=== PATIENT | female | born 1940 | race Caucasian/White ===

== ENCOUNTER 2023-07-27 08:22 | Outpatient (CLI) | payer MEDICARE | END 2023-07-27 22:14 | disposition critical access hospital (66) | LOC: EMS 08:22 | DX: R41.82 Altered mental status, unspecified (principal); W06.XXXA Fall from bed, initial encounter; Y92.003 Bedroom of unspecified non-institutional (private) residence as the place of occurrence of the external cause | CPT/HCPCS: A0425; A0429 ==

== ENCOUNTER 2023-07-27 08:44 | Inpatient (IN) | payer MEDICARE, MEDICAID ==
--- NOTE | 2023-07-27 09:22 | ED Physician Documentation ---
History of Present Illness - Stated complaint Stated Complaint: FOUND DOWN - Chief complaint Chief Complaint: General - History obtained from History obtained from: EMS - History of Present Illness Timing: Today - Additonal information Additional information: Lidna Ellis is an 83-year-old female who arrives to the emergency department via EMS with a history that she has had declining health for the past 2 months and increasing confusion and this morning she slid out of bed onto the ground. She did not have significant injury associated with this. She is not interactive. She lives with a daughter. The daughter is not in the emergency department at the time the patient arrives. We have no further history at the time the patient arrives to the emergency department. Review of Systems Constitutional: denies: Fever Respiratory: denies: Cough Neurologic: reports: Altered mental status PD PAST MEDICAL HISTORY - Past Medical History Past Medical History: Yes - Present Medications Home Medications: Ambulatory Orders Medication Instructions Recorded Confirmed Losartan [Cozaar] 25 mg PO DAILY 07/27/23 07/27/23 Melatonin 3 mg PO HS 07/27/23 07/27/23 Metoprolol Succinate [Toprol Xl] 50 mg PO BID 07/27/23 07/27/23 Omeprazole 20 mg PO DAILY 07/27/23 07/27/23 Ondansetron Odt [Zofran Odt] 4 mg TL Q6H PRN 07/27/23 07/27/23 Rosuvastatin Calcium 10 mg PO HS 07/27/23 07/27/23 Sertraline [Zoloft] 25 mg PO DAILY 07/27/23 07/27/23 metFORMIN [Glucophage] 500 mg PO BID 07/27/23 07/27/23 - Allergies Allergies/Adverse Reactions: Allergies Allergy/AdvReac Type Severity Reaction Status Date / Time amoxicillin Allergy Unknown Verified 07/27/23 10:14 codeine Allergy Hives Verified 07/27/23 10:14 diatrizoate meglumine Allergy Unknown Verified 07/27/23 10:14 Digitalis Glycosides Allergy Nausea Verified 07/27/23 10:14 iodine Allergy Unknown Verified 07/27/23 10:14 Latex, Natural Rubber Allergy Edema Verified 07/27/23 10:14 lisinopril Allergy Respiratory Verified 07/27/23 10:14 meperidine [From Demerol] Allergy Nausea Verified 07/27/23 10:14 morphine Allergy Hallucinati Verified 07/27/23 10:14 ons nitroglycerin Allergy Unknown Verified 07/27/23 10:14 oxycodone Allergy Headache Verified 07/27/23 10:14 Penicillins Allergy Hives Verified 07/27/23 10:14 simvastatin Allergy Nausea Verified 07/27/23 10:14 Sulfa (Sulfonamide Allergy Anaphylaxis Verified 07/27/23 10:14 Antibiotics) - Social History Does the pt smoke?: No Smoking Status: Never smoker Does the pt drink ETOH?: No Does the pt have substance abuse?: No - Immunizations Immunizations are current?: Yes PD ED PE NORMAL - Vitals Vital signs reviewed: Yes (hypothermia tachypneia and hypertension ) - General General: Well developed/nourished, Other (The patient is moaning and gasping for breath without audible wheeze or gurgle. Her eyes are wide open she is not making eye contact. She does not respond to verbal and makes no specific audible words. ) - HEENT HEENT: Atraumatic, PERRL, EOMI - Cardiac Cardiac: Other (tachycardia with distant heart sounds) - Respiratory Respiratory: Other (tachypneic at rest with 100% saturation and clear lungs. ) - Abdomen Abdomen: Soft, Non tender - Derm Derm: Normal color, Warm and dry, No rash - Extremities Extremities: No deformity, No edema - Neuro Neuro: No motor deficit Eye Opening: Spontaneous Motor: Localizes to Pain Verbal: Incomprehensible GCS Score: 11 Results - Vitals Vitals: Vital Signs - 24 hr 07/27/23 09:00 Temperature 32.2 C L Heart Rate 63 Respiratory 32 H Rate Blood Pressure 149/72 H O2 Saturation 100 Oxygen O2 Source Room air - EKG (time done) 0928 EKG releavant findings:: EKG personally interpreted by author of this note. Relevant findings are: Rate: Rate (enter#) (100) Rhythm: Other (rate is regular but p waves are not distinquished) Intervals: RBBB QRS: LVH Computer interpretation: Disagree with computer (I do not see V-tach looks like atifact. I do not see p-waves but the rate is regular I suspect this is not afib. ) - Labs Labs: Laboratory Tests 07/27/23 07/27/23 07/27/23 09:14 09:14 09:14 WBC 8.9 RBC 4.18 L Hgb 13.0 Hct 43.6 MCV 104.3 H MCH 31.1 H MCHC 29.8 L RDW 14.4 Plt Count 129 L MPV 9.8 Neut # (Auto) Not Reportable Lymph # (Auto) Not Reportable Harnett # (Auto) Not Reportable Eos # (Auto) Not Reportable Baso # (Auto) Not Reportable Absolute Nucleated RBC Not Reportable Total Counted 100 Band Neuts % (Manual) 5 Abnorm Lymph % (Manual) 0 Metamyelocytes % 1 H Myelocytes % 1 H Nucleated RBC % Not Reportable Neutrophils # (Manual) 5.9 Lymphocytes # (Manual) 2.5 Monocytes # (Manual) 0.4 Eosinophils # (Manual) 0.0 Basophils # (Manual) 0.0 Differential Comment MANUAL DIFFERENTIAL WBC Morphology NORMAL ADRIANNE Platelet Estimate DECREASED (<130,000) Platelet Morphology NORMAL APPEARANCE RBC Morph Micro Appear 1+ POIKILOCYTOSIS Sodium 135 Potassium 6.0 H* Chloride 98 L Carbon Dioxide 3 L* Anion Gap 34.0 H BUN 108 H* Creatinine 10.4 H* Estimated GFR (MDRD) 4 L Glucose 175 H Lactic Acid > 10.0 H* Calcium 10.4 H Total Bilirubin 0.6 AST 17 ALT 10 Alkaline Phosphatase 80 Troponin I High Sens Total Protein 6.9 Albumin 4.0 Globulin 2.9 Albumin/Globulin Ratio 1.4 Lipase 128 H Urine Color Urine Clarity Urine pH Ur Specific [place] Urine Protein Urine Glucose (UA) Urine Ketones Urine Occult Blood Urine Nitrite Urine Bilirubin Urine Urobilinogen Ur Leukocyte Esterase Urine RBC Urine WBC Ur Squamous Epith Cells Urine Bacteria Urine Casts Ur Microscopic Review Urine Culture Comments 07/27/23 07/27/23 09:14 10:00 WBC RBC Hgb Hct MCV MCH MCHC RDW Plt Count MPV Neut # (Auto) Lymph # (Auto) Harnett # (Auto) Eos # (Auto) Baso # (Auto) Absolute Nucleated RBC Total Counted Band Neuts % (Manual) Abnorm Lymph % (Manual) Metamyelocytes % Myelocytes % Nucleated RBC % Neutrophils # (Manual) Lymphocytes # (Manual) Monocytes # (Manual) Eosinophils # (Manual) Basophils # (Manual) Differential Comment WBC Morphology Platelet Estimate Platelet Morphology RBC Morph Micro Appear Sodium Potassium Chloride Carbon Dioxide Anion Gap BUN Creatinine Estimated GFR (MDRD) Glucose Lactic Acid Calcium Total Bilirubin AST ALT Alkaline Phosphatase Troponin I High Sens 30.8 H* Total Protein Albumin Globulin Albumin/Globulin Ratio Lipase Urine Color YELLOW Urine Clarity SL. CLOUDY Urine pH 5.5 Ur Specific [place] >=1.030 H Urine Protein 100 H Urine Glucose (UA) NEGATIVE Urine Ketones TRACE Urine Occult Blood LARGE H Urine Nitrite NEGATIVE Urine Bilirubin SMALL H Urine Urobilinogen 0.2 (NORMAL) Ur Leukocyte Esterase MODERATE H Urine RBC 6-10 H Urine WBC >25 H Ur Squamous Epith Cells FEW Squamous Urine Bacteria Many H Urine Casts 3-5 WBC Casts Ur Microscopic Review INDICATED Urine Culture Comments INDICATED - Rads (name of study) CT head Relevant Findings:: Prelim report reviewed, EMP independent interpretation of test Procedures - IVC sono (time) 0907 Bedside IVC sono: IVC measures (cm) (2.02), High CVP, Fluid overload PD Medical Decision Making - ED course Complexity details: reviewed old records (records from recent visits presented by daughter. ), reviewed results, re-evaluated patient, considered differential, d/w family ED course: 83-year-old female arrives to the emergency department with her Eyes wide open and making no attempt to communicate. She is moaning and breathing heavily and appears agitated. Initial blood work shows a lactate greater than 10 and renal failure with creatinine of 10.4 and BUN of 108. With POCUS her IVC is over 2 cm and not changing with respiration consistent with fluid overload. Her chest x- ray shows positioning of a dual-chamber pacemaker and sternotomy wires cardiomegaly and some pulmonary edema.A Colin catheter is placed and the patient has scant amount of urine that appears infected. Rocephin has been administered. I spoke with the patient's daughter about the possibility of her mother succumbing to this event which I suspect is highly likely. I advocated for comfort measures and I consulted our hospitalist Dr. Andrade who graciously came to the ED and evaluated the patient, spoke with the daughter and advocated for comfort measures. The daughter consented to sedative medication and requests we provide comfort measures. This did help with the patient and daughters comfort. She will be admitted for comfort measures. - Sepsis Event Current Stage of Sepsis: Sepsis Initial Hypotension: Not hypotensive Persistent Hypotension: SBP drop more than 40 mmHg from baseline Possible source of Sepsis: Genitourinary (urine appears infected) Mental/Cognitive Status: Other (Eyes opened not interactive) Reason for not giving 30ml/kg crystalloid fluids: Patient has heart failure, Fluid overload potential Capillary refill: Greater than 2 seconds Peripheral Pulse Strength: 1+ Faint Peripheral Pulse Location: Radial Bedside ultrasound performed: Yes Sepsis Comment: Arrived without communication remains non-verbal and does not hold eye contact. GCS 11. Renal failure present on arrival. Departure - Departure Disposition: 66 [facility] DC/Xfer Clinical Impression: Sepsis Qualifiers: Sepsis type: sepsis due to unspecified organism Sepsis acute organ dysfunction status: with acute organ dysfunction Severe sepsis acute organ dysfunction type: acute renal failure Acute renal failure type: unspecified Severe sepsis shock status: without septic shock Qualified Code(s): A41.9 - Sepsis, unspecified organism; R65.20 - Severe sepsis without septic shock; N17.9 - Acute kidney failure, unspecified Condition: Critical Forms: PCP List
[2023-07-27 09:23] LABS: BASOPHILS % (AUTO) 0.1 %; EOSINOPHILS % (AUTO) 0.2 %; HCT - HEMATOCRIT 43.6 % (37.0-47.0); LYMPHOCYTES % (AUTO) 25.4 %; MEAN CORPUSCULAR HEMOGLOBIN 31.1 pg (27.0-31.0); MEAN CORPUSCULAR HGB CONC 29.8 g/dL (32.0-36.0); MEAN CORPUSCULAR VOLUME 104.3 fL (81.0-99.0); MEAN PLATELET VOLUME 9.8 fL (7.9-10.8); MONOCYTES % (AUTO) 3.9 %; NEUTROPHILS % (AUTO) 63.2 %; PLT - PLATELET COUNT 129 10^3/uL (130-450); RED BLOOD COUNT 4.18 10^6/uL (4.20-5.40); RED CELL DISTRIBUTION WIDTH 14.4 % (12.0-15.0); WHITE BLOOD COUNT 8.9 x10^3/uL (4.8-10.8)
[2023-07-27 09:26] LABS: ABNORMAL LYMPHS % (MANUAL) 0 %
[2023-07-27 09:50] LABS: ALBUMIN/GLOBULIN RATIO 1.4 (1.0-2.2); BILIRUBIN,TOTAL 0.6 mg/dL (0.2-1.0); CALCIUM 10.4 mg/dL (8.5-10.3); CREATININE 10.4 mg/dL (0.6-1.3); TOTAL PROTEIN 6.9 g/dL (6.4-8.9)
[2023-07-27 09:57] LABS: BAND NEUTROPHILS % (MANUAL) 5 %; LYMPHOCYTES # (MANUAL) 2.5 10^3/uL (1.5-3.5); LYMPHOCYTES % (MANUAL) 28 %; METAMYELOCYTES % (MANUAL) 1 %; MONOCYTES # (MANUAL) 0.4 10^3/uL (0.0-1.0); MYELOCYTES % (MANUAL) 1 %; NEUTROPHILS # (MANUAL) 5.9 10^3/uL (1.5-6.6)
[2023-07-27 09:59] LABS: PLATELET MORPHOLOGY NORMAL APPEARANCE (NORMAL)
[2023-07-27 10:00] LABS: DIFFERENTIAL COMMENT MANUAL DIFFERENTIAL; PLATELET ESTIMATE, MANUAL DECREASED (<130,000) (NORMAL); WBC MORPHOLOGY (MULTIPLE) NORMAL APP (NORMAL)
[2023-07-27 10:12] LABS: BILIRUBIN,URINE SMALL (NEGATIVE); GLUCOSE, URINE (UA) NEGATIVE (NEGATIVE); KETONES,URINE (UA) TRACE mg/dL (NEGATIVE); LEUKOCYTE ESTERASE, URINE MODERATE (NEGATIVE); NITRITE,URINE NEGATIVE (NEGATIVE); OCCULT BLOOD,URINE LARGE (NEGATIVE); PH,URINE 5.5 PH (5.0-7.5); PROTEIN,URINE 100 mg/dL (NEGATIVE); UROBILINOGEN,URINE 0.2 (NORMAL) E.U./dL (NORMAL)
[2023-07-27 10:14] LABS: CLARITY,URINE SL. CLOUDY (CLEAR)
[2023-07-27 10:20] LABS: BACTERIA,URINE Many /HPF (None Seen); CASTS, URINE 3-5 WBC Casts /LPF; SQUAMOUS EPITHELIAL CELL,UR FEW Squamous (<= Few); WBC,URINE >25 /HPF (0-5)
--- NOTE | 2023-07-27 10:25 | CT Report ---
PROCEDURE: CT Brain without contrast INDICATIONS: aloc TECHNIQUE: Helical axial CT of the brain was obtained without contrast and reformatted in multiple p lanes. Radiation dose reduction was achieved using automated exposure control or adjustment of mA and /or kV according to patient size. COMPARISON: None FINDINGS: CSF spaces: Ventricles are appropriate in size and position. No hydrocephalus. Basal cisterns unre markable. Brain: No midline shift. No intracranial masses or hemorrhage. Saul-white matter interface is norm al. Moderate atrophy and multifocal white matter chronic ischemic change noted. Atherosclerotic vascular calcification noted in the cavernous segments of both internal carotid arteries. Skull and face: Calvarium and skull base are unremarkable without suspicious lesion. Sinuses: Visualized sinuses and mastoids are clear. IMPRESSION: Atrophy and chronic ischemic change without intracranial hemorrhage or mass effect Reviewed by: Aiden Guzman MD on 07/27/2023 9:23 AM JENNY Approved by: Aiden Guzman MD on 07/27/2023 9:23 AM AKHELGA Station ID: [id number]
[2023-07-27] MEDS: cefTRIAXone 1 GM in SODIUM CHLORIDE 0.9% MINIBAG 100 ML IV STA (10:27)
[2023-07-27] MEDS: FUROSEMIDE 100 MG/10 ML VIAL IVP STA (10:27)
[2023-07-27] MEDS: LORazepam 2 MG/ML VIAL IVP STA (11:10)
--- NOTE | 2023-07-27 11:21 | XRAY Report ---
PROCEDURE: Chest 1V INDICATIONS: soa TECHNIQUE: One view of the chest was acquired. COMPARISON: None FINDINGS: Surgical changes and devices: Dual-chamber left-sided pacemaker and midline sternotomy wires. Heart size is enlarged, there is mild vascular congestion present. Otherwise, lungs and pleural space s are clear. Atherosclerotic vascular calcification noted in the aortic arch. Osseous structures unre markable. IMPRESSION: Cardiomegaly and mild vascular congestion Reviewed by: Aiden Guzman MD on 07/27/2023 10:20 AM JENNY Approved by: Aiden Guzman MD on 07/27/2023 10:20 AM JENNY Station ID: [id number]
[2023-07-27] MEDS ORDERED: LORazepam 2 MG/ML VIAL IVP PRN (12:10)
[2023-07-27] MEDS ORDERED: METOCLOPRAMIDE 10 MG/2 ML VIAL IVP PRN (12:10)
[2023-07-27] MEDS ORDERED: GLYCOPYRROLATE 1 MG/5 ML VIAL SUBQ PRN (12:10)
[2023-07-27 12:14] LABS: B. PARAPERTUSSIS- RESP PCR PAN NOT DETECTED; B. PERTUSSIS- RESP PCR PANEL NOT DETECTED; C. PNEUMONIAE- RESP PCR PANEL NOT DETECTED; CORONAVIRUS 229E-RESP PCR NOT DETECTED; CORONAVIRUS HKU1-RESP PCR NOT DETECTED; CORONAVIRUS NL63-RESP PCR NOT DETECTED; CORONAVIRUS OC43-RESP PCR NOT DETECTED; HUMAN METAPNEUMOVIRUS NOT DETECTED; INFLUENZA A- RESP PCR PANEL NOT DETECTED; INFLUENZA B - RESP PCR PANEL NOT DETECTED; M. PNEUMONIAE- RESP PCR PANEL NOT DETECTED; PARAINFLUENZA VIRUS 1 NOT DETECTED; PARAINFLUENZA VIRUS 2 NOT DETECTED; PARAINFLUENZA VIRUS 3 NOT DETECTED; PARAINFLUENZA VIRUS 4 NOT DETECTED; RHINOVIRUS/ENTEROVIRUS NOT DETECTED; RSV- RESP PCR PANEL NOT DETECTED; SARS-CoV-2 -RESP PCR PANEL NOT DETECTED
--- NOTE | 2023-07-27 12:28 | HISTORY & PHYSICAL EXAMINATION ---
Chief Complaint - Chief Complaint Chief Complaint: Found unresponsive History of Present Illness - Admitted From Admitted From:: Emergency room - History Obtained From Records Reviewed: Yes History obtained from: Patient's daughter, Amy and emergency room physician Dr. Stevens - History of Present Illness HPI Comment/Other: Linda Ellis is an 83-year-old woman who has been declining in health for the last several months. Her daughter reports weight loss. Her daughter reports increased confusion throughout the day. Her daughter reports she has has increased confusion at night and in the morning. Her daughter also reports the patient has not been eating or drinking very much over the last several days.This morning her daughter found her on the floor and called 911. The patient was transferred to [facility] emergency room for further evaluation. Laboratory workup revealed a potassium of 6, bicarbonate level of 3, anion gap o f 34, BUN/Creatinine 108/10.Lactic acid is greater than 10.Chest x-ray performed in the emergency room revealed an enlarged heart with some mild vascular congestion. CT scan of the brain revealed moderate atrophy and chronic ischemic change without intracranial hemorrhage or mass effect. In the emergency room patient received ceftriaxone and furosemide. History - Past Medical History Cardiovascular: reports: Other (Hypertension) Endocrine/Autoimmune: reports: Type 2 diabetes, Other (Hyperlipidemia) GI: reports: GERD Psych: reports: Depression MRSA Hx?: No Meds/Allgy - Home Medications Home Medications: Ambulatory Orders Medication Instructions Recorded Confirmed Losartan [Cozaar] 25 mg PO DAILY 07/27/23 07/27/23 Melatonin 3 mg PO HS 07/27/23 07/27/23 Metoprolol Succinate [Toprol Xl] 50 mg PO BID 07/27/23 07/27/23 Omeprazole 20 mg PO DAILY 07/27/23 07/27/23 Ondansetron Odt [Zofran Odt] 4 mg TL Q6H PRN 07/27/23 07/27/23 Rosuvastatin Calcium 10 mg PO HS 07/27/23 07/27/23 Sertraline [Zoloft] 25 mg PO DAILY 07/27/23 07/27/23 metFORMIN [Glucophage] 500 mg PO BID 07/27/23 07/27/23 - Allergies Allergies/Adverse Reactions: Allergies Allergy/AdvReac Type Severity Reaction Status Date / Time amoxicillin Allergy Unknown Verified 07/27/23 10:14 codeine Allergy Hives Verified 07/27/23 10:14 diatrizoate meglumine Allergy Unknown Verified 07/27/23 10:14 Digitalis Glycosides Allergy Nausea Verified 07/27/23 10:14 iodine Allergy Unknown Verified 07/27/23 10:14 Latex, Natural Rubber Allergy Edema Verified 07/27/23 10:14 lisinopril Allergy Respiratory Verified 07/27/23 10:14 meperidine [From Demerol] Allergy Nausea Verified 07/27/23 10:14 morphine Allergy Hallucinati Verified 07/27/23 10:14 ons nitroglycerin Allergy Unknown Verified 07/27/23 10:14 oxycodone Allergy Headache Verified 07/27/23 10:14 Penicillins Allergy Hives Verified 07/27/23 10:14 simvastatin Allergy Nausea Verified 07/27/23 10:14 Sulfa (Sulfonamide Allergy Anaphylaxis Verified 07/27/23 10:14 Antibiotics) Review of Systems - Constitutional Constitutional: reports: Other (Unable to obtain review of systems because patient is unresponsive.) Exam - Vital Signs Reviewed Vital Signs: Yes Vital Signs: Vital Signs x48h Temp Pulse Resp BP Pulse Ox 07/27/23 11:20 60 21 113/48 L 98 07/27/23 11:00 60 19 105/51 L 100 07/27/23 10:41 65 21 102/48 L 97 07/27/23 10:31 60 18 105/73 100 07/27/23 10:00 60 18 109/56 L 98 07/27/23 09:35 59 L 20 103/59 L 100 07/27/23 09:15 62 24 109/76 100 07/27/23 09:00 32.2 C L 61 24 153/63 H 100 - Physical Exam General Appearance: positive: No acute distress, Alert Eyes Bilateral: positive: Other (Pupils are minimally responsive to light bilaterally.) Neck: positive: Thyroid nml, Trachea midline Respiratory: positive: Other (Good air exchange in all lung blue no wheezing.) Cardiovascular: positive: Other (Distant heart sounds. Positive S1-S2) Skin: positive: No rash Extremities: positive: No pedal edema Neurologic/Psychiatric: positive: Other (Comatose) Sepsis Event Note (H) - Evaluation Possible source of Sepsis: positive: Genitourinary (urine appears infected) Conclusion/Plan - Problem List (1) Coma Conclusion/Plan: (2) Hyperkalemia Conclusion/Plan: (3) Lactic acidosis Conclusion/Plan: (4) Acute kidney injury Conclusion/Plan: Patient is critically ill with multiple severe abnormalities to include coma, acute kidney injury, lactic acidosis. Her daughter reports significant cognitive decline over the last several months and in discussion with regard to goals of care, she reports her mother would not want aggressive measures to prolong her life. An order has been written to make the patient DO NOT RESUSCITATE. We discussed comfort care measures and her daughter states she feels that would be appropriate for her mother. Comfort care orders have been written. Critical care time: Time spent reviewing the chart, discussing goals of care with patient's daughter, examining the patient and writing orders is 35 minutes. - Lab Results Fish Bones: 07/27/23 09:14 07/27/23 09:14
[2023-07-27] MEDS: MORPHINE 2 MG/ML CARPUJECT IVP PRN (12:41)
--- NOTE | 2023-07-27 13:09 | PHARMACY PROGRESS NOTE ---
- Best Possible Medication History Admit Date and Time: 07/27/23 1209 Processed by: Nursing Medications reviewed in ED?: Yes As the person ultimately responsible for medication therapy, providers are able to order a medication from an existing home medication list in [facility] via the "Reconcile Routine" prior to Confirmation of that medication by production support analyst. Such practice is discouraged except when the physician, in their clinical judgment, deems that a medical need exists for a medication without regard to previous use.
[2023-07-27 14:33] VITALS: BP 65/31; O2SAT 97
[2023-07-27] MEDS ORDERED: CARBOXYMETHYLCELLULOSE OPHTH DROPS EACHEYE PRN (15:40)
[2023-07-27] MEDS ORDERED: ZINC OXIDE 12% OINT 57 GM TUBE TOP PRN (15:40)
--- NOTE | 2023-07-27 21:44 | DISCHARGE SUMMARY ---
Discharge Summary Admit Date: 07/27/23 Discharge Date: 07/27/23 Discharging Provider: Richard Luna MD Code Status: Do Not Attempt Resuscitation Condition at Discharge: Critical Discharge Disposition: 20 - DIAGNOSES Admission Diagnoses: (1) Coma (2) Hyperkalemia (3) Lactic acidosis (4) Acute kidney injury Discharge Diagnoses with Status of Each Condition: (1) Coma (2) Hyperkalemia (3) Lactic acidosis (4) Acute kidney injury - HPI History of Present Illness: Linda Ellis is an 83-year-old woman who has been declining in health for the last several months. Her daughter reports weight loss. Her daughter reports increased confusion throughout the day. Her daughter reports she has has increased confusion at night and in the morning. Her daughter also reports the patient has not been eating or drinking very much over the last several days.This morning her daughter found her on the floor and called 911. The patient was transferred to [facility] emergency room for further evaluation. Laboratory workup revealed a potassium of 6, bicarbonate level of 3, anion gap of 34, BUN/Creatinine 108/10.Lactic acid is greater than 10.Chest x-ray performed in the emergency room revealed an enlarged heart with some mild vascular congestion. CT scan of the brain revealed moderate atrophy and chronic ischemic change without intracranial hemorrhage or mass effect. In the emergency room patient received ceftriaxone and furosemide. - HOSPITAL COURSE Hospital Course: Lnida Ellis was admitted to the medical floor as an inpatient. She was placed on comfort care measures and on July 27, 2023 at 1725. - ALLERGIES Allergies/Adverse Reactions: Allergies Allergy/AdvReac Type Severity Reaction Status Date / Time amoxicillin Allergy Unknown Verified 07/27/23 10:14 codeine Allergy Hives Verified 07/27/23 10:14 diatrizoate meglumine Allergy Unknown Verified 07/27/23 10:14 Digitalis Glycosides Allergy Nausea Verified 07/27/23 10:14 iodine Allergy Unknown Verified 07/27/23 10:14 Latex, Natural Rubber Allergy Edema Verified 07/27/23 10:14 lisinopril Allergy Respiratory Verified 07/27/23 10:14 meperidine [From Demerol] Allergy Nausea Verified 07/27/23 10:14 morphine Allergy Hallucinati Verified 07/27/23 10:14 ons nitroglycerin Allergy Unknown Verified 07/27/23 10:14 oxycodone Allergy Headache Verified 07/27/23 10:14 Penicillins Allergy Hives Verified 07/27/23 10:14 simvastatin Allergy Nausea Verified 07/27/23 10:14 Sulfa (Sulfonamide Allergy Anaphylaxis Verified 07/27/23 10:14 Antibiotics) - MEDICATIONS Home Medications: Ambulatory Orders Medication Instructions Recorded Confirmed Losartan [Cozaar] 25 mg PO DAILY 07/27/23 07/27/23 Melatonin 3 mg PO HS 07/27/23 07/27/23 Metoprolol Succinate [Toprol Xl] 50 mg PO BID 07/27/23 07/27/23 Omeprazole 20 mg PO DAILY 07/27/23 07/27/23 Ondansetron Odt [Zofran Odt] 4 mg TL Q6H PRN 07/27/23 07/27/23 Rosuvastatin Calcium 10 mg PO HS 07/27/23 07/27/23 Sertraline [Zoloft] 25 mg PO DAILY 07/27/23 07/27/23 metFORMIN [Glucophage] 500 mg PO BID 07/27/23 07/27/23 - LABS Result Diagrams: 07/27/23 09:14 07/27/23 09:14 - SEPSIS Possible source of Sepsis: Genitourinary (urine appears infected)
== END 2023-07-27 17:25 | disposition expired | DRG 81 ==
LOC: ED 08:44 → MS2 12:09
PROVIDERS: ADMIT Internal Medicine; ATTEND Internal Medicine
DX: A41.9 Sepsis, unspecified organism (principal); R65.20 Severe sepsis without septic shock; R40.20 Unspecified coma; I50.9 Heart failure, unspecified; I67.82 Cerebral ischemia; I51.7 Cardiomegaly; I45.10 Unspecified right bundle-branch block; Z95.0 Presence of cardiac pacemaker; E87.20 Acidosis, unspecified; N17.9 Acute kidney failure, unspecified; E87.5 Hyperkalemia; R63.4 Abnormal weight loss; R63.8 Other symptoms and signs concerning food and fluid intake; I10 Essential (primary) hypertension; E11.9 Type 2 diabetes mellitus without complications; E78.5 Hyperlipidemia, unspecified; K21.9 Gastro-esophageal reflux disease without esophagitis; F32.A Depression, unspecified; Z51.5 Encounter for palliative care; Z79.84 Long term (current) use of oral hypoglycemic drugs; Z79.899 Other long term (current) drug therapy
CPT/HCPCS: 36415; 51702; 70450; 71045; 80053; 81001; 83605; 83690; 84484; 85025; 87040; 87086; 87154; 87633; 93005; 96365; 96375; 99285; J1940; J2060; 81003; 87077; 87181